=== PATIENT | female | born 1955 | race Caucasian/White ===

== ENCOUNTER 2025-06-23 19:22 | Emergency (ER) | payer BC, MEDICARE ==
[2025-06-23] MEDS: Diphtheria,Pertussis(Acell),Tetanus Vaccine 0.5 ML Syringe IM ONE (20:36)
== END 2025-06-23 21:04 | disposition home or self-care (01) ==
LOC: VM.ED 19:22
DX: S01.01XA Laceration without foreign body of scalp, initial encounter (principal); Z23 Encounter for immunization; Z91.040 Latex allergy status; Z88.8 Allergy status to other drugs, medicaments and biological substances; Z79.899 Other long term (current) drug therapy; Z79.01 Long term (current) use of anticoagulants; W01.198A Fall on same level from slipping, tripping and stumbling with subsequent striking against other object, initial encounter; Y93.89 Activity, other specified
CPT/HCPCS: 12001; 70450; 90471; 90715; 99283; A9270